=== PATIENT | female | born 1975 | race Caucasian/White ===

== ENCOUNTER 2018-05-13 19:47 | Emergency (ER) | payer OTHER ==
[2018-05-13 19:56] VITALS: BP 163/97; PULSE 91; TEMP 98.6; BMI 29.5
--- NOTE | 2018-05-13 20:38 | PDOC ---
Attending Attestation - [facility] HPI: 05/13/18 22:18 The patient is a 42-year-old female with no significant past medical history presents to the emergency department with epigastric pain. The patient reports since April 27, shes been having weakness, dizziness and epigastric pain. The patients report a constant pain, thats burning in quality, with the severity of 8/10. The patient reports prior to she had an episode of dizziness and weakness followed by an episode of syncope. The patient reports her friends tried to wake her up for a while. The patient state since the incident, the patients been experiencing dizziness, weakness with epigastric pain. The patient reports following up with PCP, who did a workup. The patient states except for elevated cholesterol, the rest of the workup was unremarkable. The patient states prior to , she was eating a lot of unhealthy food, but since the episode, shes been eating healthy, but less food. The patient denies fever, chills, nausea, vomiting, diarrhea, constipation , dysuria, hematuria, frequency or urgency to urinate. Allergies: NKA Social history: No past or present use of tobacco, alcohol or recreational drugs. Surgical history: None reported PCP: Dr. Nikkie Gaspar. - Physicial Exam PE: 05/13/18 22:44 GENERAL: afebril. Awake, alert, and fully oriented, in no acute distress NECK: Normal ROM, supple, no lymphadenopathy, JVD, or masses LUNGS: Breath sounds equal, clear to auscultation bilaterally. No wheezes, and no crackles HEART: (+) Irregular heartbeat, likely sinus arrhythmia. normal S1 and S2, no murmurs, rubs or gallops ABDOMEN: no rebound or guarding, R. upper, L. upper/lower quadrant and umbilical tenderness to palpation. Gassy bowel sounds. EXTREMITIES: Normal range of motion, no edema. No clubbing or cyanosis. No cords, erythema, or tenderness NEUROLOGICAL: Cranial nerves II through XII grossly intact. Normal speech, normal gait SKIN: Warm, Dry, normal turgor, no rashes or lesions noted. - Medical Decision Making 05/13/18 22:18 Documentation prepared by Martha Edouard, acting as medical technologist generalist for Terese Rodríguez MD. <Martha Edouard - Last Filed: 05/13/18 22:44> - Resident Resident Name: Jass Rios - ED Attending Attestation I have performed the following: I have examined & evaluated the patient, The case was reviewed & discussed with the resident, I agree w/resident's findings & plan - Medical Decision Making 05/13/18 23:57 Patient Name: JAISON BLACKMON THIS IS A PRELIMINARY REPORT FROM [facility] DATE OF SERVICE: 2018-05-13 22:19:20 IMAGES: 61 EXAM: Ultrasound abdomen complete and limited abdominal duplex HISTORY: Epigastric pain COMPARISON: None. FINDINGS: Abdominal ultrasound:The liver is fatty with focal sparing near the luke hepatis, without mass or biliary duct dilation. The gallbladder is normal. The CBD is not dilated and measures4 millimeters in diameter. Right kidney measures 10 pointcentimeters in length and is unremarkable. Left kidney measures 10.5 cm in length and is unremarkable. The visualized aorta and IVC are normal. Pancreas is partially obscured, but appears normal. Spleen is 9.8 cm in length and appears normal. No free fluid . Abdominal duplex: The main portal vein demonstrates normal hepatopedal flow. IMPRESSION: Fatty liver. 05/14/18 01:38 Pt has normal labs and normal exam (gassy abd and epigastric pain/gastitis only) Sono normal. She will be sent home with omeprazole and follow with PMD. She has fatty liver. <Terese Rodríguez - Last Filed: 05/14/18 01:38>
--- NOTE | 2018-05-13 21:03 | PDOC ---
History of Present Illness - General Chief Complaint: Chest Pain Stated Complaint: CHEST PAIN Time Seen by Provider: 05/13/18 20:37 History Source: Patient, Family (daughter) - History of Present Illness Initial Comments: 42 y/o F w/no PMH presents to the ER due to epigastric pain that has been occurring for the last 3-4 weeks and has progressively worsening. Pain radiates up her throat, is burning, 8/10 in intensity, worse 30min-1hr after eating, and sometimes radiates to her R arm and shoulder and is associated with dizziness. This is the first time she has had these symptoms. She saw her PCP approx 2.5 weeks ago and was given naproxen which she has taken once a day for the last week with no relief. Has not been eating as much due to worsening of pain but has been drinking water. No nausea, vomiting, diarrhea, constipation, blood in stool, dysuria, blood in urine, fevers, chills, sick contacts, recent travel, chest pressure, SOB, LE edema. PMH: No PMH PSHx: No surgeries SH: No smoking, alcohol, drugs FH: No FH Allergies: NKDA Meds: Vitamin D, Naproxen (prescribed recently for abd pain) Past History - Past Medical History Allergies/Adverse Reactions: Allergies Allergy/AdvReac Type Severity Reaction Status Date / Time No Known Allergies Allergy Verified 05/13/18 21:07 Home Medications: Ambulatory Orders Naproxen 500 mg PO BID 05/13/18 Omeprazole 20 mg PO DAILY #14 tablet. 05/13/18 Vit D3-Vit K/Berberine/Hops [Ostera Tablet] 1 each PO AC 05/13/18 COPD: No - Suicide/Smoking/Psychosocial Hx Smoking History: Never smoked Review of Systems - Review of Systems Able to Perform ROS?: Yes Constitutional: No: Chills, Fever Respiratory: No: Cough, Shortness of Breath Cardiac (ROS): No: Chest Tightness ABD/GI: Yes: Other (+ABD PAIN (epigastric)). No: Diarrhea, Nausea, Vomiting, Tarry Stools : No: Burning, Dysuria, Frequency Neurological: Yes: Dizziness *Physical Exam - Vital Signs Last Vital Signs Temp Pulse Resp BP Pulse Ox 98.6 F 91 H 18 163/97 99 05/13/18 19:50 05/13/18 19:50 10/13/18 19:50 05/13/18 19:50 05/13/18 19:50 - Physical Exam General Appearance: Yes: Nourished, Appropriately Dressed. No: Apparent Distress HEENT: positive: EOMI Neck: positive: Supple Respiratory/Chest: positive: Lungs Clear, Normal Breath Sounds Cardiovascular: positive: S1, S2. negative: Regular Rhythm, Regular Rate, Edema , Murmur Gastrointestinal/Abdominal: positive: Tender (RUQ, EPIGASTRIC, LUQ pain), Other (+ ARROYO'S SIGN) Extremity: negative: Pedal Edema Neurologic: positive: Fully Oriented, Alert, Normal Mood/Affect ED Treatment Course - LABORATORY CBC & Chemistry Diagram: 05/13/18 21:00 05/13/18 21:00 Medical Decision Making - Medical Decision Making 05/13/18 21:06 Pt with epigastric pain radiating up sternum and at times to her RUE and worse with food. Will rule out cardiac cause vs GI cause. Will order CBC, CMP, Lipase, Cardiac profile, EKG, UA, Urine , abd U/S Will give pepcid and maalox. 05/13/18 21:55 EKG: Sinus arrhythmia @ 66bpm. QTc [address] segment elevations or depressions noted. TWI in lead III. No previous EKG to compare to. Clindamycin given in error. Will monitor pt. 05/13/18 22:02 Labs CBC, CMP unremarkable. AST/ALT/ALP not elevated. Lipase wnl. UA negative. 05/13/18 22:57 Urine test negative 05/13/18 23:05 Pt reports feeling some relief after medications. Awaiting U/S read currently. 05/13/18 23:48 Prelim ultrasound read shows Fatty liver but no other pathology noted. Normal gallbladder, CBD not dilated (4mm). Pt to be discharged home with omeprazole and to take maalox as needed. Pt instructed to stop taking naproxen. To f/u with PCP in 1 week. Pt instructed to return to ER if she has worsening of current symptoms or onset of new concerning symptoms. *DC/Admit/Observation/Transfer Diagnosis at time of Disposition: Abdominal pain - Discharge Dispostion Disposition: HOME Condition at time of disposition: Stable Decision to Admit order: No - Prescriptions Prescriptions: Omeprazole 20 mg PO DAILY #14 tablet. - Referrals - Patient Instructions Printed Discharge Instructions: DI for Abdominal Pain-Adult Additional Instructions: Please follow up with your primary care doctor in 1 week. A medication (omeprazole) to help with your abdominal pain has been prescribed to your pharmacy for you. Take maalox as needed for pain in your abdomen otherwise. Stop taking your naproxen. Do not eat greasy foods or fatty foods. If your symptoms worsen or if you develop nausea, vomiting, fevers, chills, blood in your stool, or any other concerning symptoms please come back to the ER. - Post Discharge Activity
[2018-05-13 21:11] LABS: BASO % 0.9 % (0-2.0); EOS % 2.1 % (0-4.5); HEMATOCRIT 40.9 % (32.4-45.2); HEMOGLOBIN 13.9 GM/dL (10.7-15.3); LYMPH % 30.5 % (8-40); MCH 30.2 pg (25.7-33.7); MEAN CELL VOLUME 88.9 fl (80-96); MEAN PLT VOLUME 9.8 fl (7.5-11.1); MONO % 8.5 % (3.8-10.2); PLATELET COUNT 273 K/MM3 (134-434); RDW 13.3 % (11.6-15.6); WHITE BLOOD COUNT 7.5 K/mm3 (4.0-10.0)
[2018-05-13] MEDS ORDERED: MAG HYDROX/AL HYDROX/SIMETH 30 ML UNIT-DOSE CUP PO ONE (21:11)
[2018-05-13] MEDS ORDERED: FAMOTIDINE 20 MG/50 ML IVPB 20 MG/50 ML MG IVPB ONE ×2 (21:11→21:28)
[2018-05-13] MEDS ORDERED: CLINDAMYCIN 600MG PREMIX IVPB 600 MG/50 ML BAG IVPB ONE ×2 (21:21→21:27)
[2018-05-13] MEDS ORDERED: MAG HYDROX/AL HYDROX/SIMETH 30 ML UNIT-DOSE CUP ONE (21:27)
[2018-05-13 21:43] LABS: URINE APPEARANCE CLEAR; URINE BILIRUBIN NEGATIVE (<2.0 mg/dL); URINE COLOR LTYELLOW; URINE GLUCOSE (UA) NEGATIVE (NEGATIVE); URINE KETONE NEGATIVE (NEGATIVE); URINE LEUK ESTERASE TRACE (NEGATIVE); URINE NITRITE NEGATIVE (NEGATIVE); URINE PROTEIN NEGATIVE (NEGATIVE); URINE UROBILINOGEN NEGATIVE mg/dL (0.2-1.0)
[2018-05-13 21:45] LABS: EPI CELLS RARE /HPF (FEW)
[2018-05-13 21:55] LABS: ALBUMIN 3.6 g/dl (3.4-5.0); ALK PHOS 102 U/L (45-117); ANION GAP 1 MMOL/L (8-16); BILIRUBIN,TOTAL 0.3 mg/dL (0.2-1); BLOOD UREA NITROGEN 15 mg/dL (7-18); CALCIUM 8.4 mg/dL (8.5-10.1); CHLORIDE 112 mmol/L (98-107); CO2 24 mmol/L (21-32); CREATININE 0.6 mg/dL (0.55-1.3); GLUCOSE,RANDOM 101 mg/dL (74-106); LIPASE 192 U/L (73-393); SGOT/AST 19 U/L (15-37); SGPT/ALT 43 U/L (13-61); SODIUM 137 mmol/L (136-145); TOT PROT 7.5 g/dl (6.4-8.2)
[2018-05-13 22:47] LABS: HCG,QUALITATIVE URINE NEGATIVE
--- NOTE | 2018-05-14 10:51 | EKG ---
Test Reason : Blood Pressure : / mmHG Vent. Rate : 074 BPM Atrial Rate : 074 BPM P-R Int : 138 ms QRS Dur : 094 ms QT Int : 362 ms P-R-T Axes : 037 001 010 degrees QTc Int : 401 ms SINUS RHYTHM WITH PREMATURE SUPRAVENTRICULAR COMPLEXES INCOMPLETE RIGHT BUNDLE BRANCH BLOCK NO PREVIOUS ECGS AVAILABLE Confirmed by HARESH CREWS MD ([id number]) on 05/14/2018 10:50:42 AM Referred By: Confirmed By:HARESH CREWS MD
--- NOTE | 2018-05-16 12:57 | EKG ---
Test Reason : Blood Pressure : / mmHG Vent. Rate : 066 BPM Atrial Rate : 066 BPM P-R Int : 146 ms QRS Dur : 092 ms QT Int : 396 ms P-R-T Axes : 054 007 016 degrees QTc Int : 415 ms SINUS RHYTHM WITH PREMATURE SUPRAVENTRICULAR COMPLEXES INCOMPLETE RIGHT BUNDLE BRANCH BLOCK BORDERLINE ECG WHEN COMPARED WITH ECG OF 13-MAY-2018 19:48, NO SIGNIFICANT CHANGE WAS FOUND Confirmed by MD ALKA, RK ([id number]) on 05/16/2018 12:56:59 PM Referred By: Confirmed By:RK RUCKER MD
== END 2018-05-14 00:10 | disposition home or self-care (01) ==
LOC: JER 19:47
PROC: 3E033GC Introduction of Other Therapeutic Substance into Peripheral Vein, Percutaneous Approach (ICD-10-PCS; principal; 2018-05-13)
PROC: 3E03329 Introduction of Other Anti-infective into Peripheral Vein, Percutaneous Approach (ICD-10-PCS; 2018-05-13)
DX: R10.9 Unspecified abdominal pain (principal)
CPT/HCPCS: 36415; 76700-TC; 80053; 81003; 81015; 82550; 83690; 84484; 84703; 85025; 93005; 93010; 96365; 96367; 99283-25

== ENCOUNTER 2018-05-19 21:25 | Observation (INO) | payer MEDICARE, OTHER ==
[2018-05-19 21:32] VITALS: BMI 29.5
[2018-05-19] MEDS ORDERED: METOCLOPRAMIDE HCL INJECTION 10 MG/2 ML VIAL IVPUSH ONE (22:46)
[2018-05-19] MEDS ORDERED: FAMOTIDINE 20 MG/50 ML IVPB 20 MG/50 ML MG IVPB ONE (22:49)
--- NOTE | 2018-05-19 22:52 | PDOC ---
History of Present Illness - General Chief Complaint: Chest Pain Stated Complaint: DIZZINESS,CHEST PAIN Time Seen by Provider: 05/19/18 22:35 - History of Present Illness Initial Comments: 05/19/18 22:46 42 year old woman with past medical history of HLD who presents with 1 month of epigastric 8/10 abdominal pain radiating into the chest, occassionally into the bilateral arms and is associated with nausea, dizziness and headache. Patient came into the ED 1 week ago for the same complaint and was discharged with omeprazole. Patient reports she took this medication without relief. The patient reports the pain occurs 30min after eating. She saw her PCP approx 2.5 weeks ago and had been given naproxen which she took 2 weeks ago without relief. Denies vomiting, diarrhea, constipation, dysuria, blood in urine or stool, fevers, sick contacts, recent travel or shortness of breath. She has no other complaints at bedside. 05/19/18 23:03 Past History - Past Medical History Allergies/Adverse Reactions: Allergies Allergy/AdvReac Type Severity Reaction Status Date / Time No Known Allergies Allergy Verified 05/19/18 21:32 Home Medications: Ambulatory Orders Naproxen 500 mg PO BID 05/13/18 Omeprazole 20 mg PO DAILY #14 tablet. 05/13/18 Vit D3-Vit K/Berberine/Hops [Ostera Tablet] 1 each PO AC 05/13/18 COPD: No CHF: No - Suicide/Smoking/Psychosocial Hx Smoking History: Never smoked Substance Use Type: None *Physical Exam - Vital Signs Last Vital Signs Temp Pulse Resp BP Pulse Ox 97.9 F 92 H 18 136/92 98 05/19/18 21:29 05/19/18 21:29 05/19/18 21:29 05/19/18 21:29 05/19/18 21:29 - Physical Exam Comments: 05/19/18 23:02 upper abd tender to palpaiton no CVA tendernss CTBA< RRR ED Treatment Course - LABORATORY CBC & Chemistry Diagram: 05/19/18 00:10 05/20/18 00:50 Medical Decision Making - Medical Decision Making 05/19/18 23:02 42 year old woman with past medical history of HLD who presents with 1 month of epigastric 8/10 abdominal pain radiating into the chest, occassionally into the bilateral arms and is associated with nausea and dizziness. Patient came into the ED 1 week ago for the same complaint and was discharged with omeprazole. Patient reports she took this medication without relief. The patient reports the pain occurs 30min after eating. She saw her PCP approx 2.5 weeks ago and had been given naproxen which she took 2 weeks ago without relief. DDX including but not limited to: W/U: - TX: - Scores: ED Course: Patient stable 05/20/18 00:29 EKG: irregular rhythm rate of 104, premature atrial beats, no ST elevations, no QTc 457 05/20/18 00:37 CBC: unremarkable. 05/20/18 03:19 Trop-negative *DC/Admit/Observation/Transfer Diagnosis at time of Disposition: Chest pain - Discharge Dispostion Condition at time of disposition: Stable Decision to Admit order: Yes - Referrals - Patient Instructions - Post Discharge Activity
[2018-05-19] MEDS ORDERED: SODIUM CHLORIDE 1,000 ML IV SCH (23:00)
[2018-05-19] MEDS ORDERED: MAG HYDROX/AL HYDROX/SIMETH 30 ML UNIT-DOSE CUP PO ONE (23:07)
--- NOTE | 2018-05-19 23:17 | PDOC ---
Attending Attestation - Resident Resident Name: Zaria Pelayo - ED Attending Attestation I have performed the following: I have examined & evaluated the patient, The case was reviewed & discussed with the resident, I agree w/resident's findings & plan - Medical Decision Making 05/20/18 00:44 Pt comes with worsening palpitations/CP. She had irreg rhythm EKG last week when she was here, that I attributed to sinus arrhythmia. Today I will admit her to telemetry as the EKG has multiple APCs, possible MAT. She will require cardio consult and eval. Pt re-started taking herballife teas today. She had previously stopped for 1 month. She also takes Vit B. 05/20/18 00:47 <Terese Rodríguez - Last Filed: 05/20/18 00:47> - HPI HPI: This patient is a 42 year old female with PMHx of HLD who presents with 1 month of epigastric pain, exacerbated shortly after eating, radiating to her chest, rates 8/10. Patient also notes associated nausea, dizziness and headache. Patient was seen 1 week ago in this ED for similar complaint, diagnosed with GERD and d/c with omeprazole with no relief. Patient mentions that she has been taking HerbalLife supplements as recommended by a friend. She states that she stopped taking it approx. 1 month but took it again today. Denies vomiting, diarrhea, constipation, dysuria, blood in urine or stool, fevers, sick contacts, recent travel or shortness of breath. Denies any heavy lifting. - Physicial Exam PE: GENERAL: Awake, alert, and fully oriented, in no acute distress HEAD: No signs of trauma EYES: PERRLA, EOMI, sclera anicteric, conjunctiva clear LUNGS: Breath sounds equal, clear to auscultation bilaterally. No wheezes, and no crackles HEART: Regular rate and rhythm, normal S1 and S2, no murmurs, rubs or gallops ABDOMEN: Soft, Epigastric tenderness, RUQ, LUQ tenderness to palpation, normoactive bowel sounds. No guarding, no rebound. No masses. No flank pain. EXTREMITIES: Normal range of motion, no edema. No clubbing or cyanosis. No cords, erythema, or tenderness NEUROLOGICAL: Cranial nerves II through XII grossly intact. Normal speech, normal gait SKIN: Warm, Dry, normal turgor, no rashes or lesions noted. <Rahel James - Last Filed: 05/20/18 00:49>
[2018-05-20 00:22] LABS: BASO % 0.7 % (0-2.0); EOS % 0.8 % (0-4.5); HEMATOCRIT 39.9 % (32.4-45.2); HEMOGLOBIN 13.4 GM/dL (10.7-15.3); MCH 29.8 pg (25.7-33.7); MCHC 33.7 g/dl (32.0-36.0); MEAN CELL VOLUME 88.4 fl (80-96); MEAN PLT VOLUME 10.1 fl (7.5-11.1); MONO % 7.4 % (3.8-10.2); NEUT % 74.1 % (42.8-82.8); PLATELET COUNT 262 K/MM3 (134-434); RBC 4.52 M/mm3 (3.60-5.2); RDW 13.6 % (11.6-15.6); WHITE BLOOD COUNT 9.8 K/mm3 (4.0-10.0)
[2018-05-20] MEDS ORDERED: MAG HYDROX/AL HYDROX/SIMETH 30 ML UNIT-DOSE CUP ONE (01:04)
[2018-05-20] MEDS ORDERED: FAMOTIDINE 20 MG/50 ML IVPB 20 MG/50 ML MG IVPB ONE (01:04)
[2018-05-20] MEDS ORDERED: METOCLOPRAMIDE HCL INJECTION 10 MG/2 ML VIAL ONE ×2 (01:04→01:10)
[2018-05-20 01:32] LABS: ALBUMIN 3.9 g/dl (3.4-5.0); ALK PHOS 96 U/L (45-117); ANION GAP 5 MMOL/L (8-16); BILIRUBIN,TOTAL 0.3 mg/dL (0.2-1); BLOOD UREA NITROGEN 8 mg/dL (7-18); CALCIUM 8.5 mg/dL (8.5-10.1); CHLORIDE 113 mmol/L (98-107); CO2 22 mmol/L (21-32); CREATININE 0.6 mg/dL (0.55-1.3); GLUCOSE,RANDOM 96 mg/dL (74-106); POTASSIUM 3.9 mmol/L (3.5-5.1); SGOT/AST 26 U/L (15-37); SGPT/ALT 49 U/L (13-61); SODIUM 140 mmol/L (136-145); TOT PROT 7.6 g/dl (6.4-8.2)
[2018-05-20] MEDS ORDERED: SODIUM CHLORIDE 1,000 ML IV SCH (04:45)
--- NOTE | 2018-05-20 04:46 | PN ---
Teaching Attending Note Name of Resident: Tony Hernandez ATTENDING PHYSICIAN STATEMENT I saw and evaluated the patient. Chart, data, imaging reviewed. I reviewed the resident's note and discussed the case with the resident. I agree with the resident's findings and plan as documented. SUBJECTIVE: 42 year old female with PMHx of HLD who presents with 1-2 months of epigastric pain, exacerbated shortly after eating, radiating to her chest, rates 8/10. Patient also notes associated nausea and a bitter taste in her mouth. She reports eating spicy food shortly. She was seen in the emergency room last week for similar symptoms and was discharged home on omeprazole 20mg. No shortness of breath. OBJECTIVE: Last Vital Signs Temp Pulse Resp BP Pulse Ox 97.9 F 92 H 18 136/92 98 05/19/18 21:29 05/19/18 21:29 05/19/18 21:29 05/19/18 21:29 05/19/18 21:29 General- nad, aaox3 heent-atraumatic, normocephalic neck supple cv -s1+s2+rrr chest clear abd -soft, mild epigstric tenderness, bs+ ext - no pedal edema Abnormal Lab Results 05/20/18 00:50 Chloride 113 H Anion Gap 5 L ASSESSMENT AND PLAN: Epigstric pressure- like discomfort with bitter taste in mouth, no relation to exertion- moist likely this is GERD. DOubt ACS. HEART score of 1. atrial tachycardia on EKG. -tele-observation -trend troponin -cardiology eval for ekg -consider echo -check magnesium level -protonix 40mg daily -counseled pt to avoid excess etoh, chocolate, mint, spicy food, coffee -heparin sc for dvt ppx
--- NOTE | 2018-05-20 05:20 | HP ---
CHIEF COMPLAINT: epigastric and chest pain HISTORY OF PRESENT ILLNESS: 42 year old female with a history of hyperlipidemia presents to the hospital for epigastric abdominal pain radiating to her chest and neck. She reports that the pain is burning in nature, located midline, and is associated with eating. She reports eating tamales before arriving to the hospital. Currently states that she has a bitter taste in her mouth. She was seen in the emergency room last week for similar symptoms and was discharged home on omeprazole 20mg. She reports that it was helping her for a couple of days and then stopped, which prompted her to return to the emergency room. Denies shortness of breath, nausea , vomiting, diarrhea, fevers, chills. denies ever having a colonoscopy or endoscopy in the past. reports mild Does not regularly see a PCP. ER course was notable for: (1) trop (-) (2) EKG tachycardic with premature atrial complexes - appears like multifocal atrial tachycardia (3) Recent Travel: denies PAST MEDICAL HISTORY: hyperlipidemia PAST SURGICAL HISTORY: denies any surgical history Social History: Smoking: denies ever smoking Alcohol: denies Drugs: denies Family History: denies family history of cardiac disease Allergies No Known Allergies Allergy (Verified 05/19/18 21:32) HOME MEDICATIONS: Home Medications Medication Instructions Recorded Naproxen 500 mg PO BID 05/13/18 Omeprazole 20 mg PO DAILY #14 tablet. 05/13/18 Vit D3-Vit K/Berberine/Hops 1 each PO AC 05/13/18 [Ostera Tablet] REVIEW OF SYSTEMS CONSTITUTIONAL: Absent: fever, chills, diaphoresis, generalized weakness, malaise, loss of appetite, weight change HEENT: Absent: rhinorrhea, nasal congestion, throat pain, throat swelling, difficulty swallowing, mouth swelling, ear pain, eye pain, visual changes CARDIOVASCULAR: Absent: chest pain, syncope, palpitations, irregular heart rate, lightheadedness , peripheral edema RESPIRATORY: Absent: cough, shortness of breath, dyspnea with exertion, orthopnea, wheezing, stridor, hemoptysis GASTROINTESTINAL:abdominal pain Absent: abdominal distension, nausea, vomiting, diarrhea, constipation, melena, hematochezia GENITOURINARY: Absent: dysuria, frequency, urgency, hesitancy, hematuria, flank pain, genital pain MUSCULOSKELETAL: Absent: myalgia, arthralgia, joint swelling, back pain, neck pain SKIN: Absent: rash, itching, pallor HEMATOLOGIC/IMMUNOLOGIC: Absent: easy bleeding, easy bruising, lymphadenopathy, frequent infections ENDOCRINE: Absent: unexplained weight gain, unexplained weight loss, heat intolerance, cold intolerance NEUROLOGIC: Absent: headache, focal weakness or paresthesias, dizziness, unsteady gait, seizure, mental status changes, bladder or bowel incontinence PSYCHIATRIC: Absent: anxiety, depression, suicidal or homicidal ideation, hallucinations. PHYSICAL EXAMINATION Vital Signs - 24 hr 05/19/18 21:29 Temperature 97.9 F Pulse Rate 92 H Respiratory 18 Rate Blood Pressure 136/92 O2 Sat by Pulse 98 Oximetry (%) GENERAL: A&Ox3, no acute distress EYES: PERRLA, EOMI ENT: Moist mucus membranes NECK: No JVD LUNGS: CTA, no wheezes HEART: RRR, no murmurs ABDOMEN: Soft, mildly tender to palpation in the epigastrum, BS present MUSCULOSKELETAL: No CVA Tenderness EXTREMITIES: 2+ pulses, no edema. NEUROLOGICAL: Cranial nerves II-XII intact. Laboratory Results - last 24 hr 05/19/18 05/19/18 05/19/18 00:10 00:10 00:10 WBC 9.8 RBC 4.52 Hgb 13.4 Hct 39.9 MCV 88.4 MCH 29.8 MCHC 33.7 RDW 13.6 Plt Count 262 MPV 10.1 Absolute Neuts (auto) 7.2 Neutrophils % 74.1 D Lymphocytes % 17.0 D Monocytes % 7.4 Eosinophils % 0.8 Basophils % 0.7 Nucleated RBC % 0 Sodium Cancelled Potassium Cancelled Chloride Cancelled Carbon Dioxide Cancelled Anion Gap Cancelled BUN Cancelled Creatinine Cancelled Creat Clearance w eGFR Cancelled Random Glucose Cancelled Calcium Cancelled Total Bilirubin Cancelled AST Cancelled ALT Cancelled Alkaline Phosphatase Cancelled Troponin I Cancelled Cancelled Total Protein Cancelled Albumin Cancelled 05/20/18 00:50 WBC RBC Hgb Hct MCV MCH MCHC RDW Plt Count MPV Absolute Neuts (auto) Neutrophils % Lymphocytes % Monocytes % Eosinophils % Basophils % Nucleated RBC % Sodium 140 Potassium 3.9 Chloride 113 H Carbon Dioxide 22 Anion Gap 5 L BUN 8 Creatinine 0.6 Creat Clearance w eGFR > 60 Random Glucose 96 Calcium 8.5 Total Bilirubin 0.3 AST 26 ALT 49 Alkaline Phosphatase 96 Troponin I 0.03 Total Protein 7.6 Albumin 3.9 ASSESSMENT/PLAN: 42 year old female with a history of hyperlipidemia presents to the hospital for epigastric abdominal pain radiating to her chest and neck and found to have EKG changes suggestive of possible multifocal atrial tachycardia #Epigastric Abdominal Pain: likely GERD in origin based on clinical symptoms and presentation -instructed patient to not eat spicy foods, not eat 1-2 hours before going to sleep, decrease coffee/soda intake -trial of protonix 40 PO #EKG changes: showed tachycardia with premature atrial complexes appearing like multifocal atrial tachycardia -repeat troponin at 6am to rule out ischemia -cardiac monitoring for 24 hours -repeat EKG -cards consulted -TSH ordered #Hyperlipidemia: patient has not had a lipid panel while being seen at the hospital and is not currently on lipid-lowering agents -lipid profile ordered to assess baseline serum cholesterol level #FEN -NS @ 83cc/hr 1 bag -lytes normal -cholesterol controlled diet #Prophylaxis -lovenox 40 subq #Disposition -admit obs tele Visit type - Emergency Visit Emergency Visit: Yes ED Registration Date: 05/20/18 Care time: The patient presented to the Emergency Department on the above date and was hospitalized for further evaluation of their emergent condition. - New Patient This patient is new to me today: Yes Date on this admission: 05/20/18 - Critical Care Critical Care patient: No
--- NOTE | 2018-05-20 09:25 | EKG ---
Test Reason : Blood Pressure : / mmHG Vent. Rate : 104 BPM Atrial Rate : 129 BPM P-R Int : 148 ms QRS Dur : 082 ms QT Int : 348 ms P-R-T Axes : 104 -05 010 degrees QTc Int : 457 ms POOR DATA QUALITY, INTERPRETATION MAY BE ADVERSELY AFFECTED SINUS TACHYCARDIA WITH PREMATURE ATRIAL COMPLEXES WITH ABERRANT CONDUCTION OTHERWISE NORMAL ECG WHEN COMPARED WITH ECG OF 13-MAY-2018 21:26, VENT. RATE HAS INCREASED BY 38 BPM NONSPECIFIC T WAVE ABNORMALITY NO LONGER EVIDENT IN ANTERIOR LEADS Confirmed by ANALI THURSTON MD ([id number]) on 05/20/2018 9:24:46 AM Referred By: Confirmed By:ANALI THURSTON MD
[2018-05-20] MEDS ORDERED: PANTOPRAZOLE 40 MG TABLET (FP) PO SCH (10:00)
[2018-05-20] MEDS ORDERED: ENOXAPARIN NA (PORCINE) 40 MG/0.4 ML DISP.SYRIN SQ SCH (10:00)
[2018-05-20 10:36] LABS: HEMATOCRIT 39.4 % (32.4-45.2); MCH 29.9 pg (25.7-33.7); MEAN CELL VOLUME 90.6 fl (80-96); MEAN PLT VOLUME 10.3 fl (7.5-11.1); PLATELET COUNT 245 K/MM3 (134-434); RBC 4.34 M/mm3 (3.60-5.2); RDW 13.7 % (11.6-15.6)
[2018-05-20 10:59] LABS: ANION GAP 5 MMOL/L (8-16); BLOOD UREA NITROGEN 6 mg/dL (7-18); CALCIUM 7.6 mg/dL (8.5-10.1); CHLORIDE 114 mmol/L (98-107); CHOLESTEROL 169 mg/dL (50-200); CO2 24 mmol/L (21-32); CREATININE 0.5 mg/dL (0.55-1.3); GLUCOSE,RANDOM 85 mg/dL (74-106); HDL CHOLESTEROL 45 mg/dL (40-60); MAGNESIUM 2.4 mg/dL (1.8-2.4); PHOSPHOROUS 2.3 mg/dL (2.5-4.9); POTASSIUM 4.2 mmol/L (3.5-5.1); SODIUM 142 mmol/L (136-145); TRIGLYCERIDES 173 mg/dL (0-150)
--- NOTE | 2018-05-20 12:13 | CON.CARD ---
Cardiology Consult (text) - Consultation Consultation Note: cc: abd pain hpi: 42 f hx hld here with abd pain. No hx hrt dz. After eats certain foods has epigastric bloating and pain. No cp sob palps dizzy loc pnd orthopnea le edema. Treating for gerd in ER. ECG abnl so cardio eval requested. pmh: per hpi psh: nc fam: no premature cad scd ros: per hpi; no fever cough duarte muscel pain gib hematuria dysuria social: no tob meds: Home Medications Medication Instructions Recorded Omeprazole 20 mg PO DAILY #14 tablet. 05/13/18 Vit D3-Vit K/Berberine/Hops 1 each PO AC 05/13/18 [Ostera Tablet] pe: Vital Signs Period Temp Pulse Resp BP Sys/Villafuerte Pulse Ox Last 24 Hr 97.5 F-97.9 F 63-92 18-20 136-160/8-92 98-99 nad no jvd rrr s1s2 no mrg cta bl nl eff aaox3 no le e/c/c abd mild tender, pos bs nd no jaundice diaphoresis pos dp pt no carotid bruits Laboratory Last Values WBC 6.0 K/mm3 (4.0-10.0) 05/20/18 10:20 RBC 4.34 M/mm3 (3.60-5.2) 05/20/18 10:20 Hgb 13.0 GM/dL (10.7-15.3) 05/20/18 10:20 Hct 39.4 % (32.4-45.2) 05/20/18 10:20 MCV 90.6 fl (80-96) 05/20/18 10:20 MCH 29.9 pg (25.7-33.7) 05/20/18 10:20 MCHC 33.0 g/dl (32.0-36.0) 05/20/18 10:20 RDW 13.7 % (11.6-15.6) 05/20/18 10:20 Plt Count 245 K/MM3 (134-434) 05/20/18 10:20 MPV 10.3 fl (7.5-11.1) 05/20/18 10:20 Absolute Neuts (auto) 7.2 K/mm3 (1.5-8.0) 05/19/18 00:10 Neutrophils % 74.1 % (42.8-82.8) D 05/19/18 00:10 Lymphocytes % 17.0 % (8-40) D 05/19/18 00:10 Monocytes % 7.4 % (3.8-10.2) 05/19/18 00:10 Eosinophils % 0.8 % (0-4.5) 05/19/18 00:10 Basophils % 0.7 % (0-2.0) 05/19/18 00:10 Nucleated RBC % 0 % (0-0) 05/19/18 00:10 Sodium 142 mmol/L (136-145) 05/20/18 10:20 Potassium 4.2 mmol/L (3.5-5.1) 05/20/18 10:20 Chloride 114 mmol/L (98-107) H 05/20/18 10:20 Carbon Dioxide 24 mmol/L (21-32) 05/20/18 10:20 Anion Gap 5 MMOL/L (8-16) L 05/20/18 10:20 BUN 6 mg/dL (7-18) L 05/20/18 10:20 Creatinine 0.5 mg/dL (0.55-1.3) L 05/20/18 10:20 Creat Clearance w eGFR > 60 (>60) 05/20/18 10:20 Random Glucose 85 mg/dL (74-106) 05/20/18 10:20 Calcium 7.6 mg/dL (8.5-10.1) L 05/20/18 10:20 Phosphorus 2.3 mg/dL (2.5-4.9) L 05/20/18 10:20 Magnesium 2.4 mg/dL (1.8-2.4) 05/20/18 10:20 Total Bilirubin 0.3 mg/dL (0.2-1) 05/20/18 00:50 AST 26 U/L (15-37) 05/20/18 00:50 ALT 49 U/L (13-61) 05/20/18 00:50 Alkaline Phosphatase 96 U/L (45-117) 05/20/18 00:50 Creatine Kinase 47 IU/L (26-192) 05/20/18 10:20 Troponin I 0.06 ng/ml (0.00-0.05) H 05/20/18 10:20 Total Protein 7.6 g/dl (6.4-8.2) 05/20/18 00:50 Albumin 3.9 g/dl (3.4-5.0) 05/20/18 00:50 Triglycerides 173 mg/dL (0-150) H 05/20/18 10:20 Cholesterol 169 mg/dL (50-200) 05/20/18 10:20 Total LDL Cholesterol 112 mg/dL (5-100) H 05/20/18 10:20 HDL Cholesterol 45 mg/dL (40-60) 05/20/18 10:20 TSH 1.04 uIU/ml (0.358-3.74) 05/20/18 10:20 Serum , Qual Negative 05/20/18 05:31 ecg: sr, pacs, nl intervals, no ischemic changes cxr: clear lungs a/p: 42 f hx hld here with abd pain. abd pain: -likely gerd, gi related -reproducible with palpation -no signs acs hld: -diet control abnl ecg: -ecg with sr and pacs -tsh wnl -lytes unremarkable -pacs benign, outpt work up
--- NOTE | 2018-05-20 13:49 | DS ---
Physical Exam: SUBJECTIVE: Patient seen and examined. states her pain improvd with protonix she received this AM. states she had the pain after eating tamales last night. was taking omeprazole only when she had symptoms. denies CP, SOB,f ever, chills , N/V/C/D OBJECTIVE: Vital Signs Period Temp Pulse Resp BP Sys/Villafuerte Pulse Ox Last 24 Hr 97.5 F-97.9 F 63-92 18-20 136-160/8-92 98-99 PHYSICAL EXAM GENERAL: The patient is awake, alert, and fully oriented, in no acute distress. HEAD: Normal with no signs of trauma. EYES: PERRL, extraocular movements intact, sclera anicteric, conjunctiva clear. ENT: Ears normal, nares patent, oropharynx clear without exudates, moist mucous membranes. NECK: Trachea midline, full range of motion, supple. LUNGS: Breath sounds equal, clear to auscultation bilaterally, no wheezes, no crackles, no accessory muscle use. HEART: Regular rate and rhythm, S1, S2 without murmur, rub or gallop. ABDOMEN: Soft, nontender, nondistended, normoactive bowel sounds, no guarding, no rebound, no hepatosplenomegaly, no masses. EXTREMITIES: 2+ pulses, warm, well-perfused, no edema. NEUROLOGICAL: Cranial nerves II through XII grossly intact. Normal speech, gait not observed. PSYCH: Normal mood, normal affect. SKIN: Warm, dry, normal turgor, no rashes or lesions noted. LABS Laboratory Results - last 24 hr 05/19/18 05/19/18 05/19/18 00:10 00:10 00:10 WBC 9.8 RBC 4.52 Hgb 13.4 Hct 39.9 MCV 88.4 MCH 29.8 MCHC 33.7 RDW 13.6 Plt Count 262 MPV 10.1 Absolute Neuts (auto) 7.2 Neutrophils % 74.1 D Lymphocytes % 17.0 D Monocytes % 7.4 Eosinophils % 0.8 Basophils % 0.7 Nucleated RBC % 0 Sodium Cancelled Potassium Cancelled Chloride Cancelled Carbon Dioxide Cancelled Anion Gap Cancelled BUN Cancelled Creatinine Cancelled Creat Clearance w eGFR Cancelled Random Glucose Cancelled Calcium Cancelled Phosphorus Magnesium Total Bilirubin Cancelled AST Cancelled ALT Cancelled Alkaline Phosphatase Cancelled Creatine Kinase Troponin I Cancelled Cancelled Total Protein Cancelled Albumin Cancelled Triglycerides Cholesterol Total LDL Cholesterol HDL Cholesterol TSH Serum , Qual 05/20/18 05/20/18 05/20/18 00:50 05:31 10:20 WBC 6.0 RBC 4.34 Hgb 13.0 Hct 39.4 MCV 90.6 MCH 29.9 MCHC 33.0 RDW 13.7 Plt Count 245 MPV 10.3 Absolute Neuts (auto) Neutrophils % Lymphocytes % Monocytes % Eosinophils % Basophils % Nucleated RBC % Sodium 140 Potassium 3.9 Chloride 113 H Carbon Dioxide 22 Anion Gap 5 L BUN 8 Creatinine 0.6 Creat Clearance w eGFR > 60 Random Glucose 96 Calcium 8.5 Phosphorus Magnesium Total Bilirubin 0.3 AST 26 ALT 49 Alkaline Phosphatase 96 Creatine Kinase Troponin I 0.03 Total Protein 7.6 Albumin 3.9 Triglycerides Cholesterol Total LDL Cholesterol HDL Cholesterol TSH Serum , Qual Negative 05/20/18 05/20/18 10:20 10:20 WBC RBC Hgb Hct MCV MCH MCHC RDW Plt Count MPV Absolute Neuts (auto) Neutrophils % Lymphocytes % Monocytes % Eosinophils % Basophils % Nucleated RBC % Sodium 142 Potassium 4.2 Chloride 114 H Carbon Dioxide 24 Anion Gap 5 L BUN 6 L Creatinine 0.5 L Creat Clearance w eGFR > 60 Random Glucose 85 Calcium 7.6 L Phosphorus 2.3 L Magnesium 2.4 Total Bilirubin AST ALT Alkaline Phosphatase Creatine Kinase 47 Troponin I 0.06 H Total Protein Albumin Triglycerides 173 H Cholesterol 169 Total LDL Cholesterol 112 H HDL Cholesterol 45 TSH 1.04 Serum , Qual HOSPITAL COURSE: Date of Admission:05/20/18 Date of Discharge: 05/20/18 Admitting diagnosis: R/O ACS Pre hospital course 42 year old female with a history of hyperlipidemia presents to the hospital for epigastric abdominal pain radiating to her chest and neck. She reports that the pain is burning in nature, located midline, and is associated with eating. She reports eating tamales before arriving to the hospital. Currently states that she has a bitter taste in her mouth. She was seen in the emergency room last week for similar symptoms and was discharged home on omeprazole 20mg. She reports that it was helping her for a couple of days and then stopped, which prompted her to return to the emergency room. Denies shortness of breath, nausea , vomiting, diarrhea, fevers, chills. denies ever having a colonoscopy or endoscopy in the past. reports mild Does not regularly see a PCP. Subsequent hospital course Tele observation. was seen to have an atrial tachycardia. Cardiac enzymes were trended. seen by cardio. d/c on protonix for GERD like symptoms with education on diet changes. instructed to take medications every day regardless of symptoms. will need to f/u [facility] cardio for atrial tachycardia for further workup. d/c home. daughter present at bedside. verbalized understanding of plan. Minutes to complete discharge: 40 Discharge Summary Reason For Visit: CHEST PAIN Current Active Problems Chest pain (Acute) GERD (gastroesophageal reflux disease) (Acute) Condition: Stable - Instructions Diet, Activity, Other Instructions: You were observed overnight in the hospital due to your pain. We monitored your heart which appears to be fine. This is most likely from acid reflux. You were started on an acid lower medication last week. We will switch your medication at this time to a different medication. Take this every day for 2 weeks. If your symptoms do not improve make an appointment to follow up with a GI specialist for further testing. Information on one has been provided. Avoid eating spicy food and caffeine containing beverages. Refer to hand out on what to avoid Follow up with your primary care doctor in 1 week If your symptoms worsen, return to the ER Referrals: Donald Zimmerman DO [Staff Physician] - Shane Manuel MD [Staff Physician] - - Home Medications Comprehensive Discharge Medication List: Ambulatory Orders Vit D3-Vit K/Berberine/Hops [Ostera Tablet] 1 each PO AC 05/13/18 Pantoprazole Sodium [Protonix -] 40 mg PO DAILY #14 tablet.ec 05/20/18 This patient is new to me today: Yes Date on this admission: 05/20/18 Emergency Visit: Yes ED Registration Date: 05/20/18 Care time: The patient presented to the Emergency Department on the above date and was hospitalized for further evaluation of their emergent condition. Critical Care patient: No - Discharge Referral Referred to [facility] Med P.C.: No
[2018-05-20 14:15] LABS: INR 1.05 (0.83-1.09); PROTHROMBIN TIME (PATIENT) 12.4 SEC (9.7-13.0)
[2018-05-20 14:38] VITALS: BP 116/65; PULSE 69; TEMP 98.1
== END 2018-05-20 14:49 | disposition home or self-care (01) ==
LOC: JER 21:25 → JERBED 05-20 04:37
PROVIDERS: ADMIT Internal Medicine; ATTEND Internal Medicine
PROC: 3E033GC Introduction of Other Therapeutic Substance into Peripheral Vein, Percutaneous Approach (ICD-10-PCS; principal; 2018-05-20)
PROC: 3E0337Z Introduction of Electrolytic and Water Balance Substance into Peripheral Vein, Percutaneous Approach (ICD-10-PCS; 2018-05-20)
PROC: 3E013GC Introduction of Other Therapeutic Substance into Subcutaneous Tissue, Percutaneous Approach (ICD-10-PCS; 2018-05-20)
DX: R07.9 Chest pain, unspecified (principal); K21.9 Gastro-esophageal reflux disease without esophagitis; R10.13 Epigastric pain; R94.31 Abnormal electrocardiogram [ECG] [EKG]; E78.5 Hyperlipidemia, unspecified
CPT/HCPCS: 36415; 71045-TC-FY; 80048; 80053; 80061; 82550; 83721; 83735; 84100; 84443; 84484; 84703; 85025; 85027; 85610; 93005; 93010; 96365; 96372; 96375; 99284-25; G0378; J7030